=== PATIENT | male | born 1990 | race Caucasian/White ===

== ENCOUNTER 2021-10-18 10:12 | Inpatient (IN) | payer OTHER ==
[~2021-10-18] VITALS: Ht 177.8 cm; Wt 77.3 kg
[2021-10-18 11:36] LABS: BASOPHILS % (AUTO) 0.6 % (0.0-2.0); EOSINOPHILS % (AUTO) 0.1 % (1.0-6.0); HEMATOCRIT 42.7 % (41-53); HEMOGLOBIN 14.7 g/dL (13.5-17.5); LYMPHOCYTES % (AUTO) 8.2 % (22.0-44.0); MEAN CORPUSCULAR HEMOGLOBIN 30.1 pg (26.0-34.0); MEAN CORPUSCULAR HGB CONC 34.4 G/dL (31.0-37.0); MEAN CORPUSCULAR VOLUME 87 fL (80-100); MONOCYTES # (AUTO) 0.5 K/uL (0.1-1.0); MONOCYTES % (AUTO) 4.2 % (2.0-9.0); NEUTROPHILS # (AUTO) 10.9 K/uL (1.8-7.7); NEUTROPHILS % (AUTO) 86.9 % (40.0-70.0); PLATELET COUNT (AUTO) 280 K/uL (150-450); RED BLOOD CELL COUNT(AUTO) 4.88 MIL/uL (4.50-5.90); RED CELL DISTRIBUTION WIDTH 12.7 % (11.5-14.5)
[2021-10-18 11:50] LABS: ANION GAP 11 mmol/L (8-16); CALCIUM, TOTAL 9.4 mg/dL (8.8-10.5); CARBON DIOXIDE 27 mmol/L (22-29); CHLORIDE 102 mmol/L (98-107); CREATININE 1.09 mg/dL (0.60-1.30); GLOMERULAR FILTR. RATE CALC > 60 mL/min (>60); GLUCOSE,RANDOM 119 mg/dL (70-110); POTASSIUM 4.3 mmol/L (3.5-5.1); SODIUM SERUM 140 mmol/L (136-145); UREA NITROGEN, BLOOD 14 mg/dL (7-18)
[2021-10-18 11:54] LABS: ALANINE AMINOTRANSFERASE 38 U/L (12-78); ALBUMIN 4.4 g/dL (3.4-5.0); ALKALINE PHOSPHATASE 74 U/L (46-116); ASPARTATE AMINOTRANSFERASE 21 U/L (15-37); BILIRUBIN,TOTAL 0.3 mg/dL (0.1-1.0); TOTAL PROTEIN, SERUM 7.5 g/dL (6.4-8.2)
[2021-10-18 12:06] LABS: COVID AG,FIA SOURCE NASAL SWAB
[2021-10-18 13:25] LABS: AMPHET/METH SCREEN,URINE POSITIVE (NEGATIVE); BARBITURATE SCREEN, URINE NEGATIVE (NEGATIVE); BENZODIAZEPINES SCREEN,URINE NEGATIVE (NEGATIVE); CANNABINOID SCREEN,URINE POSITIVE (NEGATIVE); COCAINE SCREEN,URINE NEGATIVE (NEGATIVE); METHADONE SCREEN, URINE NEGATIVE (NEGATIVE); OPIATE SCREEN,URINE NEGATIVE (NEGATIVE)
[2021-10-18 13:29] LABS: PHENCYCLIDINE SCREEN,URINE NEGATIVE (NEGATIVE)
[2021-10-18] MEDS ORDERED: METOCLOPRAMIDE HCL 5 MG/ML 2 ML VIAL IVP PRN (14:15)
[2021-10-18] MEDS ORDERED: DICYCLOMINE HCL 10 MG CAPSULE PO PRN (14:15)
[2021-10-18] MEDS ORDERED: LORazepam 2 MG/ML VIAL IVP PRN (14:15)
[2021-10-18] MEDS ORDERED: ACETAMINOPHEN/CODEINE 300-15 MG TABLET PO PRN (14:15)
[2021-10-18] MEDS ORDERED: LOPERAMIDE HCL 2 MG CAPSULE PO PRN (14:15)
[2021-10-18 16:26] VITALS: BP 122/79
[2021-10-18 21:12] VITALS: BP 118/69
[2021-10-18] MEDS: TEMAZEPAM 15 MG CAPSULE PO SCH (22:28)
[2021-10-18 22:41] VITALS: BP 123/75
[2021-10-19 05:05] VITALS: BP 100/56
[2021-10-19 08:36] VITALS: BP 110/57
[2021-10-19] MEDS: ALPRAZolam 0.5 MG TABLET PO PRN ×2 (15:29→22:40)
[2021-10-19 15:50] VITALS: BP 138/78
[2021-10-19 20:20] VITALS: BP 126/67
[2021-10-19] MEDS: TEMAZEPAM 15 MG CAPSULE PO SCH (20:21)
[2021-10-19] MEDS: NICOTINE 14 MG/24 HOUR PATCH TD SCH (23:46)
[2021-10-20 04:20] VITALS: BP 100/63
[2021-10-20] MEDS: NICOTINE 14 MG/24 HOUR PATCH TD SCH ×2 (09:00→14:16)
[2021-10-20] MEDS ORDERED: ALPR-342 PO (12:41)
[2021-10-20] MEDS: ALPRAZolam 0.5 MG TABLET PO PRN (14:53)
[2021-10-20 16:02] VITALS: BP 118/69
[2021-10-20] MEDS: TEMAZEPAM 15 MG CAPSULE PO SCH (20:07)
[2021-10-20 20:32] VITALS: BP 147/87
[2021-10-20] MEDS ORDERED: ZOLPIDEM TARTRATE 5 MG TABLET PO ONE (21:15)
[2021-10-21] MEDS: ALPRAZolam 0.5 MG TABLET PO PRN (03:22)
[2021-10-21 04:00] VITALS: BP 114/69
== END 2021-10-21 06:52 | DRG 897 ==
LOC: EMS 10:16 → 6S 16:10
PROVIDERS: ADMIT Internal Medicine; ATTEND Internal Medicine
DX: F11.13 Opioid abuse with withdrawal (principal); R65.10 Systemic inflammatory response syndrome (SIRS) of non-infectious origin without acute organ dysfunction; R73.9 Hyperglycemia, unspecified; F17.210 Nicotine dependence, cigarettes, uncomplicated; F19.10 Other psychoactive substance abuse, uncomplicated; Z20.822 Contact with and (suspected) exposure to COVID-19
CPT/HCPCS: 80053; 85025; 93005; 99285; G0480; J2060